=== PATIENT | male | born 2000 | race African-American/Black ===

== ENCOUNTER 2022-03-19 19:59 | Emergency (ER) | payer OTHER ==
[2022-03-19 21:56] LABS: CORONAVIRUS 2019 SARS-COV-2 NEGATIVE (NEGATIVE); INFLUENZA A NAA NEGATIVE (NEGATIVE)
== END 2022-03-19 22:01 | disposition left against medical advice (07) ==
LOC: FER 19:59
PROVIDERS: Internal Medicine
DX: Z53.21 Procedure and treatment not carried out due to patient leaving prior to being seen by health care provider (principal); Z20.822 Contact with and (suspected) exposure to COVID-19
CPT/HCPCS: 93005; U0002